=== PATIENT | female | born 1975 | race Caucasian/White ===

== ENCOUNTER 2017-11-06 13:38 | Emergency (ER) | payer MEDICAID, OTHER ==
[~2017-11-06] VITALS: Ht 162.6 cm; Wt 99.3 kg
[2017-11-06 13:53] VITALS: BP 157/95
--- NOTE | 2017-11-06 14:00 | NUR ---
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 Pt denies any fevers, urinary complaints, or diarrhea. Pt is aox4 with steady gait. RR are even and unlabored. No acute distress at this time. Er md irvin by bedside examining pt. All needs met at this time. Will continue to monitor.
[2017-11-06] MEDS ORDERED: NACL 0.9% 500 ML IV ONE ×2 (14:47)
[2017-11-06] MEDS ORDERED: ONDANSETRON 4 MG/2 ML VIAL IVP ONE (14:50)
[2017-11-06] MEDS ORDERED: KETOROLAC 30 MG/ML VIAL IVP ONE (14:50)
[2017-11-06 17:38] VITALS: BP 136/72
--- NOTE | 2017-11-06 17:40 | NUR ---
Patient discharged with v/s stable. Written and verbal after care instructions given and explained. Patient alert, oriented and verbalized understanding of instructions. IV catheter removed, catheter intact, and dressing applied. Ambulatory with steady gait. All questions addressed prior to discharge. ID band removed. Patient advised to follow up with PMD. Rx of TRAMADOL 50 MG TAB AND MOTRIN 800MG TAB given. Patient educated on indication of medication including possible reaction and side effects. Opportunity to ask questions provided and answered.
== END 2017-11-06 17:40 | disposition home or self-care (01) ==
LOC: MED 13:38
DX: N20.0 Calculus of kidney (principal)
CPT/HCPCS: 74176; 96361; 96374; 99284; J1885

== ENCOUNTER 2017-11-12 11:58 | Emergency (ER) | payer OTHER ==
[~2017-11-12] VITALS: Ht 162.6 cm; Wt 97.5 kg
[2017-11-12 12:02] VITALS: BP 139/73
--- NOTE | 2017-11-12 12:10 | NUR ---
PT AMBULATED TO [facility] [place]
--- NOTE | 2017-11-12 12:11 | NUR ---
c/o dizziness x 4 days with nausea describes as room is spinning----denies injury/trauma ambulatory with steady gait . DENIES N/V/D; SKIN IS PINK/WARM/DRY; AAOX4 WITH EVEN AND STEADY GAIT; LUNGS CLEAR BL; HR EVEN AND REGULAR; PT DENIES ANY FEVER, CP, SOB, OR COUGH AT THIS TIME; PATIENT STATES PAIN OF 0/10 AT THIS TIME; VSS; ER MD MADE AWARE OF PT STATUS.
[2017-11-12] MEDS ORDERED: PROMETHAZINE 25 MG/ML VIAL IM ONE (13:25)
--- NOTE | 2017-11-12 13:59 | NUR ---
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
[2017-11-12 14:15] VITALS: BP 122/81
--- NOTE | 2017-11-12 14:15 | NUR ---
Patient discharged with v/s stable. Written and verbal after care instructions given and explained. Patient alert, oriented and verbalized understanding of instructions. Ambulatory with steady gait. All questions addressed prior to discharge. ID band removed. Patient advised to follow up with PMD. Rx of ANTIVERT given. Patient educated on indication of medication including possible reaction and side effects. Opportunity to ask questions provided and answered.
--- NOTE | 2017-11-12 14:16 | NUR ---
STATES DIZZINES HAS SUBSIDED AT THIS TIME---INSTRUCTED TO F/U WITH PMD THIS UPCOMING WEEK
== END 2017-11-12 14:15 | disposition home or self-care (01) ==
LOC: MED 11:58
DX: R42 Dizziness and giddiness (principal)
CPT/HCPCS: 96372; 99283; J2550

== ENCOUNTER 2018-03-21 20:41 | Emergency (ER) | payer OTHER ==
[~2018-03-21] VITALS: Ht 170.2 cm; Wt 108.9 kg
[2018-03-21 20:43] VITALS: BP 160/90
[2018-03-21] MEDS ORDERED: KETOROLAC 30 MG/ML VIAL IM ONE (21:15)
[2018-03-21 21:43] LABS: ALBUMIN 3.7 g/dL (3.4-5.0); ANION GAP 13.3 (8-16); CARBON DIOXIDE 24.6 mmol/L (21-32); CREATININE 1.1 mg/dL (0.6-1.3); POTASSIUM 3.9 mmol/L (3.5-5.1); TOTAL BILIRUBIN 0.2 mg/dL (0.0-1.0)
[2018-03-21 21:52] LABS: APPEARANCE,URINE CLEAR (CLEAR); BILIRUBIN,URINE NEGATIVE (NEGATIVE); BLOOD, URINE 3+ (NEGATIVE); COLOR,URINE YELLOW (YELLOW); LEUKOCYTE ESTERASE ,URINE NEGATIVE (NEGATIVE); NITRITE, URINE NEGATIVE (NEGATIVE); PH,URINE 5.5 (5.0-9.0); UGLUCOSE NEGATIVE (NEGATIVE)
[2018-03-21 21:53] LABS: HEMATOCRIT 34.1 % (36-48); HEMOGLOBIN 10.8 g/dL (12.0-16.0); LYMPHOCYTES # (AUTO) 2.5 K/uL (2.5-16.5); MEAN CORPUSCULAR HEMOGLOBIN 26 pg (27-31); MEAN CORPUSCULAR HGB CONC 32 g/dL (33-37); MEAN CORPUSCULAR VOLUME 81.1 fL (80-94); PLATELET COUNT (AUTO) 299 K/uL (140-450); RED BLOOD CELL COUNT(AUTO) 4.21 MIL/uL (4.20-5.40); RED CELL DISTRIBUTION WIDTH 14.7 % (11.6-13.7); WHITE BLOOD COUNT (AUTO) 11.5 K/uL (4.8-10.8)
[2018-03-21 21:54] LABS: BASOPHILS # (AUTO) 0.6 K/uL (0.00-0.22); EOSINOPHILS # (AUTO) 0.4 K/uL (0-0.4)
[2018-03-21 22:00] LABS: RBC,URINE >100 /HPF (0-5); WBC,URINE NONE SEEN /HPF (0-5)
[2018-03-21 23:06] VITALS: BP 155/88
== END 2018-03-21 23:00 | disposition home or self-care (01) ==
LOC: MED 20:41
DX: R10.2 Pelvic and perineal pain (principal)
CPT/HCPCS: 36415; 76830; 80053; 81001; 81025; 83690; 85025; 96372; 99285; J1885; Q0092

== ENCOUNTER 2019-04-26 05:07 | Emergency (ER) | payer OTHER ==
[~2019-04-26] VITALS: Ht 167.6 cm; Wt 95.3 kg
[2019-04-26 05:13] VITALS: BP 145/89
--- NOTE | 2019-04-26 05:16 | NUR ---
PT AMBULATED TO BED 4. PROVIDING URINE.
--- NOTE | 2019-04-26 05:20 | NUR ---
43Y FEMALE, PRESENTED TO ED, C/O HEMATURIA WITH BURNING SENSATION UPON URINATION THAT STARTED AT 0200. PT ALSO C/O SUPRAPUBIC PAIN 5/10, DENIES LOW BACK PAIN, NO N/V/FEVER/CHILLS. PT AAOX4, GCS 15, RR EVEN UNLABORED, EDMD DR. CABALLERO MADE AWARE, WILL CONTINUE TO MONITOR CLOSELY, BED LOCKED IN LOWEST POSITION, SIDERAIL UPX1.
[2019-04-26 05:40] VITALS: BP 145/89
--- NOTE | 2019-04-26 05:40 | NUR ---
Patient discharged with v/s stable. Written and verbal after care instructions given and explained. Patient alert, oriented and verbalized understanding of instructions. Ambulatory with steady gait. All questions addressed prior to discharge. ID band removed. Patient advised to follow up with PMD. Rx of PYRIDIUM 200MG, MOTRIN 800MG AND CIPRO 500MG given. Patient educated on indication of medication including possible reaction and side effects. Opportunity to ask questions provided and answered.
== END 2019-04-26 05:40 | disposition home or self-care (01) ==
LOC: MED 05:07
DX: N12 Tubulo-interstitial nephritis, not specified as acute or chronic (principal)
CPT/HCPCS: 81002; 81025; 99283

== ENCOUNTER 2019-08-28 04:37 | Emergency (ER) | payer OTHER ==
[~2019-08-28] VITALS: Ht 160 cm; Wt 95.3 kg
[2019-08-28 04:40] VITALS: BP 140/83
--- NOTE | 2019-08-28 04:40 | NUR ---
TO BED # 06 AMBULATORY
--- NOTE | 2019-08-28 04:45 | NUR ---
PT 43 Y/O FEMALE BIB SELF FOR C/O OF COUGH X 1 DAY. PAIN 5/10 CHEST PAIN PROVOKED BY COUGH. COUGH ID NON PRODUCTIVE. RESPIRATIONS ARE EVEN AND UNLABORED. PT DENIES TAKING ANY MEDICATIONS FOR COUGH. AFEBRIE. DENIES N/V/D. SKIN IS WARM AND DRY TO TOUCH. PT AXO X4. BED IN LOWEST POSITION AND LOCKED IN PLACE. PT RESTING IN BED EYES OPEN AND LOOKING AT PHONE. MED HX: NONE ALLERGIES: NONE.
--- NOTE | 2019-08-28 05:00 | NUR ---
DR. BRADLEY AT BEDSIDE.
--- NOTE | 2019-08-28 05:20 | NUR ---
PT RESTING IN BED EYES OPEN, LOOKING AT PHONE. RESPIRATIONS ARE EVEN AND UNLABORED. SKIN IS WARM AND DRY TO TOUCH. PT RED IN LOWEST POSTION AND LOCKED IN PLACE.
--- NOTE | 2019-08-28 05:35 | NUR ---
Patient discharged with v/s stable. Written and verbal after care instructions given and explained. Patient alert, oriented and verbalized understanding of instructions. Ambulatory with steady gait. All questions addressed prior to discharge. ID band removed. Patient advised to follow up with PMD. Rx of PROMETHAZINE, TAMIFLU, MOTRIN given. Patient educated on indication of medication including possible reaction and side effects. Opportunity to ask questions provided and answered.
[2019-08-28 05:36] VITALS: BP 140/83
== END 2019-08-28 05:35 | disposition home or self-care (01) ==
LOC: MED 04:37
DX: J11.1 Influenza due to unidentified influenza virus with other respiratory manifestations (principal); I10 Essential (primary) hypertension
CPT/HCPCS: 99283

== ENCOUNTER 2020-10-06 09:48 | Emergency (ER) | payer OTHER ==
[~2020-10-06] VITALS: Ht 157.5 cm; Wt 98.9 kg
[2020-10-06 09:55] VITALS: BP 155/88
--- NOTE | 2020-10-06 09:58 | NUR ---
Patient ambulated to bed 8 with even, steady gait.
--- NOTE | 2020-10-06 10:10 | NUR ---
44 Y/O F COMING IN FROM HOME WITH C/C RIGHT FOREARM PAIN X 2 DAYS. PT STATES ON 10/04, SHE WAS LIFTING A GALLON OF WATER AND BEGAN EXPERIENCING FOREARM AND HAND PAIN. PT DESCRIBES PAIN 7/10, DULL/INTERMITTENT PAIN THAT RADIATES FROM HER RIGHT FOREARM TO HER HAND. LIMITED ROM OF RIGHT HAND NOTED; PT UNABLE TO CLOSE FIST. PT STATES HE TOOK ALEVE ON 10/05 WITH POSITIVE RELIFE. PT DENIES NAUSEA, VOMITING, FEVER/CHILLS, COLD-LIKE SYMPTOMS, DIZZINESS, HEADACHE, CHEST PAIN, SOB, ABD PAIN. LMP 10/06/20. PT PLACED ONTO GAUGER CHIEF DELIVERY. VSS, LUNG SOUNDS CTA, RESPIRATIONS EVEN/UNLABORED. BED LOCKED IN LOWEST POSITION, SIDE RAILS X 1, CALL LIGHT IN REACH. PMH/MEDS: TRACEY PAGE: [id number]
--- NOTE | 2020-10-06 10:13 | NUR ---
DR. CABALLERO EVALUATING PATIENT AT BEDSIDE.
[2020-10-06] MEDS ORDERED: KETOROLAC 60 MG/2 ML VIAL IM ONE (10:20)
--- NOTE | 2020-10-06 10:36 | NUR ---
PT STATES POSITIVE RELIEF AFTER PAIN MANAGEMENT ORDERS. PT STATES PAIN 6/10 AT THIS TIME. ALL PT NEEDS MET AT THIS TIME. 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 BED LOCKED IN LOWEST POSITION, SIDE RAILS X 1, CALL LIGHT IN REACH.
[2020-10-06 10:39] VITALS: BP 132/84
== END 2020-10-06 10:37 | disposition home or self-care (01) ==
LOC: MED 09:48
DX: M79.631 Pain in right forearm (principal); Z98.890 Other specified postprocedural states; X50.0XXA Overexertion from strenuous movement or load, initial encounter; Y93.89 Activity, other specified; Y92.89 Other specified places as the place of occurrence of the external cause; Y99.8 Other external cause status
CPT/HCPCS: 96372; 99283; J1885

== ENCOUNTER 2020-10-31 00:25 | Emergency (ER) | payer OTHER ==
[~2020-10-31] VITALS: Ht 162.6 cm; Wt 102.1 kg
[2020-10-31 00:38] VITALS: BP 141/86
[2020-10-31] MEDS ORDERED: CYCLOBENZAPRINE 10 MG TAB PO ONE (00:40)
[2020-10-31] MEDS ORDERED: ACETAMINOPHEN 325 MG TAB PO ONE (00:40)
[2020-10-31] MEDS ORDERED: KETOROLAC 15 MG/ML VIAL IM ONE (00:40)
--- NOTE | 2020-10-31 00:47 | NUR ---
PT AMBULATED TO BED 4 WITH STEADY GAIT, PROVIDED UA SAMPLE AT THIS TIME.
--- NOTE | 2020-10-31 01:03 | NUR ---
44 Y/O FEMALE BIB SELF WITH C/O "PULSATING" RADIATING NECK PAIN FROM NECK TO BACK OF THE HEAD, STATES PAIN IS 10/10. REPORTS TAKING ACYCLOVIR IN COMBINATION WITH UNKNOWN MED WHICH WAS PRESCRIBED BY PCP ONE MONTH AGO. DENIES HAVING ANY SENSITIVITY TO LIGHT. NEURO WNL SHE IS AA&OX 4. PT IN BED SIDE RAIL UP X 1 FOR SAFETY. PMHX: DENIES NKA
[2020-10-31] MEDS ORDERED: ACET-2619 PO (01:44)
[2020-10-31] MEDS ORDERED: CYCL10TA33 PO (01:44)
[2020-10-31] MEDS ORDERED: IBUP-2213 PO (01:44)
[2020-10-31 01:54] VITALS: BP 141/86
--- NOTE | 2020-10-31 01:54 | NUR ---
Patient discharged with v/s stable. Written and verbal after care instructions given and explained. Patient alert, oriented and verbalized understanding of instructions. Ambulatory with steady gait. All questions addressed prior to discharge. ID band removed. Patient advised to follow up with PMD. Rx of CYCLOBENZAPRINE, IBUPROFEN, ACETAMINOPHEN given. Patient educated on indication of medication including possible reaction and side effects. Opportunity to ask questions provided and answered.
== END 2020-10-31 01:54 | disposition home or self-care (01) ==
LOC: MED 00:25
DX: M54.2 Cervicalgia (principal); Z79.899 Other long term (current) drug therapy
CPT/HCPCS: 96372; 99283; J1885

== ENCOUNTER 2021-04-14 21:01 | Emergency (ER) | payer OTHER ==
[~2021-04-14] VITALS: Ht 160 cm; Wt 99.8 kg
[~2021-04-14 21:01] MED LIST: ACET-2619 PO; CYCL10TA33 PO; IBUP-2213 PO
[2021-04-14 21:05] VITALS: BP 135/58
--- NOTE | 2021-04-14 21:08 | NUR ---
TO LOBBY A/W BED AMBULATORY
[2021-04-14 21:59] LABS: BASOPHILS # (AUTO) 0.1 K/uL (0.00-0.22); EOSINOPHILS # (AUTO) 0.3 K/uL (0-0.4); EOSINOPHILS % (AUTO) 2.5 % (0.0-4.0); HEMATOCRIT 35.2 % (36-48); HEMOGLOBIN 11.4 g/dL (12.0-16.0); LYMPHOCYTES # (AUTO) 2.8 K/uL (2.5-16.5); LYMPHOCYTES % (AUTO) 26.6 % (20.5-51.1); MEAN CORPUSCULAR HEMOGLOBIN 26 pg (27-31); MEAN CORPUSCULAR HGB CONC 32 g/dL (33-37); MEAN CORPUSCULAR VOLUME 81.2 fL (80-94); MONOCYTES # (AUTO) 0.9 K/uL (0.8-1.0); NEUTROPHILS # (AUTO) 6.6 K/uL (1.8-7.7); NEUTROPHILS % (AUTO) 61.9 % (42.2-75.2); PLATELET COUNT (AUTO) 304 K/uL (140-450); RED BLOOD CELL COUNT(AUTO) 4.33 MIL/uL (4.20-5.40); RED CELL DISTRIBUTION WIDTH 16.1 % (11.6-13.7); WHITE BLOOD COUNT (AUTO) 10.6 K/uL (4.8-10.8)
[2021-04-14 22:10] LABS: ALBUMIN 3.4 g/dL (3.4-5.0); ANION GAP 12.9 (8-16); CARBON DIOXIDE 28.8 mmol/L (21-32); CREATININE 0.9 mg/dL (0.6-1.3); POTASSIUM 3.7 mmol/L (3.5-5.1); TOTAL BILIRUBIN 0.2 mg/dL (0.0-1.0)
[2021-04-14] MEDS ORDERED: PANTOPRAZOLE 40 MG TABEC PO ONE (22:50)
[2021-04-14] MEDS ORDERED: HYDROcodone/APAP 10/325 MG 1 TAB TAB PO ONE (22:50)
--- NOTE | 2021-04-14 23:09 | NUR ---
MEDICATED PER ERMDS ORDER, TOLERATED WELL.
--- NOTE | 2021-04-14 23:20 | NUR ---
PT TAKEN TO CT
--- NOTE | 2021-04-14 23:26 | NUR ---
PT RETURN FROM CT TO ER BED 11
--- NOTE | 2021-04-14 23:40 | NUR ---
EPIGASTRIC PAIN FOR X5 DAYS. PATIENT REPORTS EATING AND LIKING FOODS THAT ARE SPICY AND HAS BEEN EATING SPICY FOODS. PATIENT REPORTS NOT TAKING ANY MEDICATION ONLY IBUPROFEN WITH NO RELIEF. PATIENT AAOX4, VSS. ANGÉLICAA
[2021-04-14 23:57] LABS: APPEARANCE,URINE CLEAR (CLEAR); BILIRUBIN,URINE NEGATIVE (NEGATIVE); BLOOD, URINE NEGATIVE (NEGATIVE); COLOR,URINE YELLOW (YELLOW); LEUKOCYTE ESTERASE ,URINE NEGATIVE (NEGATIVE); NITRITE, URINE NEGATIVE (NEGATIVE); UGLUCOSE NEGATIVE (NEGATIVE)
[2021-04-15] MEDS ORDERED: PANT40EC PO (00:46)
[2021-04-15 01:09] VITALS: BP 135/58
--- NOTE | 2021-04-15 01:09 | NUR ---
Patient discharged with v/s stable. Written and verbal after care instructions given and explained. Patient alert, oriented and verbalized understanding of instructions. Ambulatory with steady gait. All questions addressed prior to discharge. ID band removed. Patient advised to follow up with PMD. Rx of protonix given. Patient educated on indication of medication including possible reaction and side effects. Opportunity to ask questions provided and answered.
== END 2021-04-15 01:09 | disposition home or self-care (01) ==
LOC: MED 21:01
DX: R10.13 Epigastric pain (principal); Z79.899 Other long term (current) drug therapy; Z79.1 Long term (current) use of non-steroidal anti-inflammatories (NSAID)
CPT/HCPCS: 36415; 80053; 81003; 83690; 84703; 85025; 99284

== ENCOUNTER 2021-08-29 09:10 | Emergency (ER) | payer OTHER, SELFPAY ==
[~2021-08-29] VITALS: Ht 170.2 cm; Wt 99.8 kg
[~2021-08-29 09:10] MED LIST changes: +PANT40EC PO
[2021-08-29 09:18] VITALS: BP 153/83
--- NOTE | 2021-08-29 09:21 | NUR ---
PT IN TENT.
[2021-08-29] MEDS ORDERED: PRED20TA5 PO (09:43)
[2021-08-29] MEDS ORDERED: IBUP-2213 PO (09:43)
[2021-08-29 09:51] VITALS: BP 145/78
--- NOTE | 2021-08-29 09:52 | NUR ---
Patient discharged with v/s stable. Written and verbal after care instructions given FOR SORE THROAT and explained. Patient alert, oriented and verbalized understanding of instructions. Ambulatory with steady gait. All questions addressed prior to discharge. ID band removed. Patient advised to follow up with PMD. Rx of IBUPROFEN AND PREDNISONE given. Patient educated on indication of medication including possible reaction and side effects. Opportunity to ask questions provided and answered.
== END 2021-08-29 09:52 | disposition home or self-care (01) ==
LOC: MED 09:10
DX: J02.9 Acute pharyngitis, unspecified (principal); Z79.899 Other long term (current) drug therapy; Z98.890 Other specified postprocedural states
CPT/HCPCS: 99283

== ENCOUNTER 2022-02-09 05:25 | Emergency (ER) | payer OTHER ==
[~2022-02-09] VITALS: Ht 157.5 cm; Wt 93.9 kg
[~2022-02-09 05:25] MED LIST changes: +PRED20TA5 PO
[2022-02-09 05:30] VITALS: BP 129/77
--- NOTE | 2022-02-09 05:30 | NUR ---
TO BED AMBULATORY
[2022-02-09 06:37] VITALS: BP 129/77
--- NOTE | 2022-02-09 06:37 | NUR ---
Patient discharged. Written and verbal after care instructions given and explained. Patient verbalized understanding. Ambulatory with steady gait. ID band removed. All questions addressed prior to discharge. Advised to follow up with PMD.
== END 2022-02-09 06:37 | disposition home or self-care (01) ==
LOC: MED 05:25
DX: M25.471 Effusion, right ankle (principal); Z79.899 Other long term (current) drug therapy; Z98.890 Other specified postprocedural states
CPT/HCPCS: 99281

== ENCOUNTER 2022-03-24 06:57 | Emergency (ER) | payer OTHER ==
[~2022-03-24] VITALS: Ht 167.6 cm; Wt 90.7 kg
[2022-03-24 07:04] VITALS: BP 129/64
[2022-03-24] MEDS ORDERED: NITR100C7 PO (07:29)
[2022-03-24] MEDS ORDERED: PHEN-1877 PO (07:29)
--- NOTE | 2022-03-24 07:30 | NUR ---
DR ARANDA AT BEDSIDE.
--- NOTE | 2022-03-24 07:41 | NUR ---
46 Y/O F C/O UTI SYMPTOMS AND PAIN 8/10 FOR ONE WEEK. LMP WAS 03/01/2022. NOT BLOOD OR FEVER. NKA PMHx: DM
--- NOTE | 2022-03-24 07:42 | NUR ---
46/F PRESENTS TO ED WITH C/O URINARY FREQUENCY AND DYSURIA X1 WEEK. PATIENT DENIES N/V/D, FEVER, CHILLS OR CONCERNS FOR STDS. DENIES TAKING ANY MEDS FOR HER SYMPTOMS.
--- NOTE | 2022-03-24 07:45 | NUR ---
Patient discharged with v/s stable. Written and verbal after care instructions given and explained. Patient alert, oriented and verbalized understanding of instructions. Ambulatory with steady gait. All questions addressed prior to discharge. ID band removed. Patient advised to follow up with PMD. Rx of NITROFURANTOIN MONOHYD/M-CYST, PHENAZOPYRIDINE given. Opportunity to ask questions provided and answered.
--- NOTE | 2022-03-24 07:49 | NUR ---
The patient's care was reviewed and supervised by Deirdre Anderson RN.
== END 2022-03-24 07:44 | disposition home or self-care (01) ==
LOC: MED 06:57
DX: N39.0 Urinary tract infection, site not specified (principal); E11.9 Type 2 diabetes mellitus without complications; Z79.899 Other long term (current) drug therapy; Z98.890 Other specified postprocedural states
CPT/HCPCS: 81002; 81025; 99283

== ENCOUNTER 2022-03-26 14:18 | Emergency (ER) | payer OTHER ==
[~2022-03-26] VITALS: Ht 167.6 cm; Wt 93.0 kg
[~2022-03-26 14:18] MED LIST changes: +NITR100C7 PO; +PHEN-1877 PO
[2022-03-26 14:32] VITALS: BP 135/80
--- NOTE | 2022-03-26 14:50 | NUR ---
PATIENT PRESENTS TO ED WITH SUPRAPUBIC PAIN X 1.5 WEEKS. PT STATES SHE'S ON ATB BUT NOT IMPROVING . DENIES N/V/D; SKIN IS PINK/WARM/DRY; AAOX4 WITH EVEN AND STEADY GAIT; LUNGS CLEAR BL; HR EVEN AND REGULAR; PT DENIES ANY FEVER, CP, SOB, OR COUGH AT THIS TIME; PATIENT STATES PAIN OF 7/10 AT THIS TIME; VSS; PATIENT POSITIONED FOR COMFORT; HOB ELEVATED; BEDRAILS UP X2; BED DOWN. ER MD MADE AWARE OF PT STATUS.
[2022-03-26] MEDS ORDERED: IBUP-1842 PO (14:54)
[2022-03-26] MEDS ORDERED: LEVO750T51 PO (14:54)
[2022-03-26] MEDS ORDERED: KETOROLAC 30 MG/ML VIAL IM ONE (14:55)
[2022-03-26] MEDS ORDERED: cefTRIAXone 1,000 MG in LIDOCAINE MPF 1% 2.1 ML IM ONE (14:55)
[2022-03-26] MEDS ORDERED: cefTRIAXone 1,000 MG VIAL ONE (14:56)
[2022-03-26] MEDS ORDERED: LIDOCAINE MPF 1% 5 ML ONE (14:56)
[2022-03-26 15:12] LABS: APPEARANCE,URINE CLEAR (CLEAR); BILIRUBIN,URINE NEGATIVE (NEGATIVE); BLOOD, URINE TRACE-I (NEGATIVE); COLOR,URINE DARK YELLOW (YELLOW); LEUKOCYTE ESTERASE ,URINE NEGATIVE (NEGATIVE); NITRITE, URINE POSITIVE (NEGATIVE); UGLUCOSE NEGATIVE (NEGATIVE)
--- NOTE | 2022-03-26 15:16 | NUR ---
Patient discharged with v/s stable. Written and verbal after care instructions given. Patient alert, oriented and verbalized understanding of instructions. Ambulatory with steady gait. All questions addressed prior to discharge. ID band removed. Patient advised to follow up with PMD. Rx of Motrin and Levofloxacin given. Opportunity to ask questions provided and answered.
[2022-03-26 15:43] LABS: RBC,URINE 0-5 /HPF (0-5); WBC,URINE 0-5 /HPF (0-5)
[2022-03-26 15:44] LABS: OTHER CASTS, URINE None Seen /LPF (None Seen)
== END 2022-03-26 15:16 | disposition home or self-care (01) ==
LOC: MED 14:18
DX: N39.0 Urinary tract infection, site not specified (principal); Z79.899 Other long term (current) drug therapy
CPT/HCPCS: 81001; 87086; 96372; 99284; J0696; J1885; J2001; 81002

== ENCOUNTER 2022-04-21 06:45 | Emergency (ER) | payer OTHER ==
[~2022-04-21] VITALS: Ht 167.6 cm; Wt 91.2 kg
[~2022-04-21 06:45] MED LIST changes: +IBUP-1842 PO; +LEVO750T75 PO
[2022-04-21 06:57] VITALS: BP 144/91
--- NOTE | 2022-04-21 07:08 | NUR ---
Patient ambulated to bed 12.
[2022-04-21] MEDS ORDERED: HYDR5SYR2 PO (08:10)
[2022-04-21 08:16] VITALS: BP 137/87
--- NOTE | 2022-04-21 08:16 | NUR ---
Patient discharged with v/s stable. Written and verbal after care instructions given and explained. Patient verbalized understanding. Ambulatory with steady gait. All questions addressed prior to discharge. Advised to follow up with PMD.
== END 2022-04-21 08:16 | disposition home or self-care (01) ==
LOC: MED 06:45
DX: U07.1 COVID-19 (principal); R09.1 Pleurisy; Z79.899 Other long term (current) drug therapy
CPT/HCPCS: 71045; 99283

== ENCOUNTER 2022-12-24 15:55 | Emergency (ER) | payer OTHER ==
[~2022-12-24 15:55] MED LIST changes: +HYDR5SYR2 PO
--- NOTE | 2022-12-24 16:05 | NUR ---
CALLED IN LOBBY, NO ANSWER
--- NOTE | 2022-12-24 16:24 | NUR ---
NO ANSWER. PT LEFT WITHOUT BEING SEEN.
== END 2022-12-24 16:05 | disposition left against medical advice (07) ==
LOC: MED 15:55
DX: M54.9 Dorsalgia, unspecified (principal); Z53.21 Procedure and treatment not carried out due to patient leaving prior to being seen by health care provider

== ENCOUNTER 2022-12-26 07:21 | Emergency (ER) | payer OTHER ==
[~2022-12-26] VITALS: Ht 167.6 cm; Wt 92.5 kg
[2022-12-26 07:32] VITALS: BP 110/76
--- NOTE | 2022-12-26 07:36 | NUR ---
LOW BACK PAIN (04/07) X 1 WEEK, WITH DISCOMFORT WITH URINATION X 2 DAYS. DENIES FEVERS, DENIES N/V/D.
[2022-12-26] MEDS ORDERED: KETOROLAC 30 MG/ML VIAL IM ONE (07:45)
--- NOTE | 2022-12-26 07:53 | NUR ---
URINE SPECIMEN SENT TO LAB.
[2022-12-26 08:49] LABS: APPEARANCE,URINE CLEAR (CLEAR); BILIRUBIN,URINE NEGATIVE (NEGATIVE); BLOOD, URINE 2+ (NEGATIVE); COLOR,URINE YELLOW (YELLOW); LEUKOCYTE ESTERASE ,URINE NEGATIVE (NEGATIVE); NITRITE, URINE NEGATIVE (NEGATIVE); UGLUCOSE NEGATIVE (NEGATIVE)
[2022-12-26 09:02] LABS: RBC,URINE 0-5 /HPF (0-5); WBC,URINE 0-5 /HPF (0-5)
[2022-12-26] MEDS ORDERED: NAPR-54 PO (09:23)
[2022-12-26] MEDS ORDERED: ACET-10509 PO (09:23)
[2022-12-26 09:44] VITALS: BP 110/76
--- NOTE | 2022-12-26 09:45 | NUR ---
Patient discharged with v/s stable. Written and verbal after care instructions given and explained. Patient alert, oriented and verbalized understanding of instructions. Ambulatory with steady gait. All questions addressed prior to discharge. ID band removed. Patient advised to follow up with PMD. Rx of naproxen, tylenol (sent) given. Patient educated on indication of medication including possible reaction and side effects. Opportunity to ask questions provided and answered.
== END 2022-12-26 09:45 | disposition home or self-care (01) ==
LOC: MED 07:21
DX: M54.50 Low back pain, unspecified (principal); E11.9 Type 2 diabetes mellitus without complications; Z79.899 Other long term (current) drug therapy
CPT/HCPCS: 81001; 81025; 87086; 96372; 99283; J1885

== ENCOUNTER 2023-02-28 08:25 | Emergency (ER) | payer OTHER ==
[~2023-02-28] VITALS: Ht 167.6 cm; Wt 90.7 kg
[~2023-02-28 08:25] MED LIST changes: +ACET-10509 PO; +NAPR-54 PO
[2023-02-28 08:36] VITALS: BP 123/93; PULSE 72; RESP 18; TEMP 97.6; O2SAT 98
--- NOTE | 2023-02-28 08:43 | NUR ---
47 yo/f w c/o heavier menstruation than normal x4 days saturating x3 pads per hour with clots. denies any pain. denies known . pmh: KARINA
--- NOTE | 2023-02-28 08:56 | NUR ---
Patients urine sample walked to lab.
[2023-02-28] MEDS ORDERED: MEDR10TA PO (09:09)
[2023-02-28 09:14] VITALS: BP 123/93; PULSE 72; RESP 17; TEMP 97.6; O2SAT 98
--- NOTE | 2023-02-28 09:15 | NUR ---
Patient discharged with v/s stable. Written and verbal after care instructions given and explained. Patient alert, oriented and verbalized understanding of instructions. Ambulatory with steady gait. All questions addressed prior to discharge. ID band removed. Patient advised to follow up with PMD. Rx of provera given. Patient educated on indication of medication including possible reaction and side effects. Opportunity to ask questions provided and answered.
[2023-02-28 09:58] LABS: BILIRUBIN,URINE NEGATIVE (NEGATIVE); BLOOD, URINE 3+ (NEGATIVE); LEUKOCYTE ESTERASE ,URINE NEGATIVE (NEGATIVE); NITRITE, URINE NEGATIVE (NEGATIVE); UGLUCOSE NEGATIVE (NEGATIVE)
[2023-02-28 10:01] LABS: APPEARANCE,URINE CLOUDY (CLEAR)
[2023-02-28 10:02] LABS: CALCIUM OXALATE CRYSTALS,UR None Seen /HPF (None Seen); COARSE GRANULAR CASTS,URINE None Seen /LPF (None Seen); COLOR,URINE BLOODY (YELLOW); FINE GRANULAR CASTS,URINE None Seen /LPF (None Seen); HYALINE CASTS, URINE None Seen /LPF (None Seen); OTHER CASTS, URINE None Seen /LPF (None Seen); OTHER CRYSTALS,URINE None Seen /HPF (None Seen); RBC,URINE TOO NUMEROUS TO COUN /HPF (0-5); RED BLOOD CELL CASTS,URINE None Seen /LPF (None Seen); TRICHOMONAS,URINE None Seen /HPF (None Seen); TRIPLE PHOSPHATE CRYSTAL,UR None Seen /HPF (None Seen); URIC ACID CRYSTALS,URINE None Seen /HPF (None Seen); URINE AMORPHOUS URATE None Seen /HPF (None Seen); WAXY CASTS,URINE None Seen /LPF (None Seen); YEAST,URINE None Seen /HPF (None Seen)
== END 2023-02-28 09:15 | disposition home or self-care (01) ==
LOC: MED 08:25
DX: N92.0 Excessive and frequent menstruation with regular cycle (principal); Z78.0 Asymptomatic menopausal state; E11.9 Type 2 diabetes mellitus without complications; Z98.890 Other specified postprocedural states; Z79.899 Other long term (current) drug therapy; Z79.1 Long term (current) use of non-steroidal anti-inflammatories (NSAID); Z79.2 Long term (current) use of antibiotics
CPT/HCPCS: 81001; 81025; 99283

== ENCOUNTER 2023-03-25 04:30 | Emergency (ER) | payer OTHER ==
[~2023-03-25] VITALS: Ht 154.9 cm; Wt 93.0 kg
[~2023-03-25 04:30] MED LIST changes: +MEDR10TA PO
[2023-03-25 04:49] VITALS: BP 135/78; PULSE 63; RESP 16; TEMP 97.8; O2SAT 99
--- NOTE | 2023-03-25 04:53 | NUR ---
TO LOBBY A/W BED AMBULATORY
--- NOTE | 2023-03-25 05:09 | NUR ---
PT TO BED 07 AMBULATORY
--- NOTE | 2023-03-25 05:20 | NUR ---
FIRST CONTACT WITH PT. ASSESSMENT COMPLETED. AWAITING MD PORTILLO AND ORDERS
[2023-03-25] MEDS ORDERED: MEDR10TA PO (05:41)
[2023-03-25 06:18] VITALS: BP 124/76; PULSE 82; RESP 16; TEMP 98.4; O2SAT 98
[2023-03-25 06:33] LABS: BASOPHILS # (AUTO) 0.1 K/uL (0.00-0.22); BASOPHILS % (AUTO) 0.8 % (0.0-2.0); EOSINOPHILS # (AUTO) 0.2 K/uL (0-0.4); EOSINOPHILS % (AUTO) 2.9 % (0.0-4.0); HEMATOCRIT 25.2 % (36-48); HEMOGLOBIN 7.8 g/dL (12.0-16.0); LYMPHOCYTES # (AUTO) 1.7 K/uL (2.5-16.5); LYMPHOCYTES % (AUTO) 26.8 % (20.5-51.1); MEAN CORPUSCULAR HEMOGLOBIN 24 pg (27-31); MEAN CORPUSCULAR HGB CONC 31 g/dL (33-37); MEAN CORPUSCULAR VOLUME 77.6 fL (80-94); MONOCYTES # (AUTO) 0.5 K/uL (0.8-1.0); MONOCYTES % (AUTO) 8.6 % (1.7-9.3); NEUTROPHILS # (AUTO) 3.8 K/uL (1.8-7.7); NEUTROPHILS % (AUTO) 60.9 % (42.2-75.2); PLATELET COUNT (AUTO) 282 K/uL (140-450); RED BLOOD CELL COUNT(AUTO) 3.25 MIL/uL (4.20-5.40); RED CELL DISTRIBUTION WIDTH 16.7 % (11.6-13.7); WHITE BLOOD COUNT (AUTO) 6.3 K/uL (4.8-10.8)
== END 2023-03-25 06:17 | disposition home or self-care (01) ==
LOC: MED 04:30
DX: N93.8 Other specified abnormal uterine and vaginal bleeding (principal); D50.9 Iron deficiency anemia, unspecified; E11.9 Type 2 diabetes mellitus without complications; Z79.899 Other long term (current) drug therapy
CPT/HCPCS: 36415; 81025; 85025; 96372; 99283; J1050

== ENCOUNTER 2023-11-10 16:38 | Emergency (ER) | payer OTHER ==
[~2023-11-10] VITALS: Ht 170.2 cm; Wt 91.3 kg
[2023-11-10 16:45] VITALS: BP 127/70; PULSE 68; RESP 16; TEMP 98.7
[2023-11-10] MEDS: ACETAMINOPHEN 325 MG TAB PO ONE (17:43)
[2023-11-10] MEDS: methocarbamoL 500 MG TAB PO STA (17:44)
[2023-11-10] MEDS: LIDOCAINE 5% 1 EA PATCH TP ONE (17:47)
[2023-11-10] MEDS: KETOROLAC 30 MG/ML VIAL IM ONE (17:49)
[2023-11-10 18:22] LABS: APPEARANCE,URINE CLEAR (CLEAR); BILIRUBIN,URINE NEGATIVE (NEGATIVE); BLOOD, URINE TRACE-I (NEGATIVE); COLOR,URINE YELLOW (YELLOW); LEUKOCYTE ESTERASE ,URINE NEGATIVE (NEGATIVE); NITRITE, URINE NEGATIVE (NEGATIVE); PROTEIN,URINE NEGATIVE (NEGATIVE); UGLUCOSE NEGATIVE (NEGATIVE); UROBILINOGEN,URINE 0.2 EU/dL (0.2 - 1)
[2023-11-10] MEDS ORDERED: NAPR-54 PO (19:09)
[2023-11-10] MEDS ORDERED: METH-1681 PO (19:10)
[2023-11-10] MEDS ORDERED: LID5T TP (19:10)
[2023-11-10 19:38] VITALS: BP 127/70; PULSE 68; RESP 16; TEMP 98.7; O2SAT 98
== END 2023-11-10 19:38 | disposition home or self-care (01) ==
LOC: MED 16:38
DX: M54.50 Low back pain, unspecified (principal); E11.9 Type 2 diabetes mellitus without complications; I10 Essential (primary) hypertension; Z98.890 Other specified postprocedural states; Z79.899 Other long term (current) drug therapy
CPT/HCPCS: 81003; 81025; 96372; 99284; J1885